=== PATIENT | male | born 1975 | race Asian ===

== ENCOUNTER 2019-05-12 10:04 | Emergency (ER) | payer SELFPAY ==
[2019-05-12] MEDS: DIPHENHYDRAMINE 25 MG CAP PO (11:04)
== END 2019-05-12 11:56 | disposition home or self-care (01) ==
LOC: FTE 10:04
DX: H10.31 Unspecified acute conjunctivitis, right eye (principal); L03.213 Periorbital cellulitis
CPT/HCPCS: 99283